=== PATIENT | female | born 1965 | race Caucasian/White ===

== ENCOUNTER 2017-02-04 01:30 | Emergency (ER) | payer OTHER ==
--- NOTE | 2017-02-10 08:00 | ED DISCHARGE INSTRUCTIONS ---
Patient: LETY QUICK General Instructions [facility] VisitID: [id number] [address] [place] [address] 51y, F Registration Date/Time: 02/04/2017 Formication. (Electronically signed by Brian Gillette MD 02/04/2017 6:50)
--- NOTE | 2017-02-10 08:00 | ED MAR SUMMARY ---
..... Medication Administration Record [facility] [address] [place], [place] [id number] Patient: LETY QUICK Visit ID: [id number] 51y, F Weight: 104.3 kg Height/Length: 67 in BMI: 36 ALLERGIES: Flagyl
--- NOTE | 2017-02-10 08:00 | ED MED RECONCILIATION SUMMARY ---
Patient: LETY QUICK Medication Reconciliation Report [facility] VisitID: [id number] [address] [place] [address] 51y, F Registration Date/Time: 02/04/2017 Weight: 104.3 kg Height/Length: 67 in. BMI: 36.0 ALLERGIES: Flagyl The patient's Home Medications are listed below: NONE. The source(s) of the original Home Medication information: Not obtained. The following Medications were given to the patient in the Emergency Department: None. The following Medications were prescribed to the patient: None.
--- NOTE | 2017-02-10 08:00 | ED ORDER SUMMARY ---
..... Patient: LETY QUICK OrderSheet [facility] VisitID: [id number] [place] [address] 51y, F Registration Date/Time: 02/04/2017 ORDER SHEET Weight: 104.3 kg (stated) Allergies: Flagyl GENERAL ORDERS: Urine Drug Screen Urgent (02:05 02/04/2017 Yariel PAULINO) (2:22 DDavis R.N.) Urine Urgent (02:05 02/04/2017 Yariel PAULINO) (2:22 DDtrinh R.N.) MEDICATION ORDERS: IV FLUIDS: ORDER SHEET NOTES: [Electronically signed by Brian Gillette MD (06:50 02/04/2017)] [Electronically signed by Nikky Taylor R.N. (07:59 02/10/2017)] [Electronically locked/signed by Nikky Taylor R.N. (07:59 02/10/2017)]
--- NOTE | 2017-02-10 08:00 | ED CLINICAL REPORT ---
Clinical Report - Physicians/Mid Levels [facility] [address] [place] [address] 02/04/2017 1:32 Patient: LETY QUICK Time Seen: 01:43. Arrived- By ambulance. Historian- patient and EMS personnel. History limited by agitation. Physical Exam limited by poor cooperation. HISTORY OF PRESENT ILLNESS Chief Complaint: ("pollywogs in my skin"). This started about 2 months ago and is still present. It was gradual in onset and has been intermittent and waxing/waning. It has been generalized in location. No cause has been identified. Similar symptoms previously: Recent medical care: The patient was seen recently at another facility in the office. ( her mother describes a treatment consistent with scabies therapy). REVIEW OF SYSTEMS No chills, fever, sweats, calf pain or chest pain. No cough, difficulty breathing, pedal edema, palpitations or abdominal pain. No constipation, diarrhea, nausea, vomiting or urinary problems. PAST HISTORY Problems: Psycotic Episodes. Fibromyalgia. Additional Surgeries: Cholecystectomy. . Hysterectomy. Tonsillectomy. Tubal Ligation. Medications: None. Allergies: Flagyl. SOCIAL HISTORY Current every day heavy tobacco smoker (cigarette)- 1-2 packs per day. History of heavy drug use: marijuana. No alcohol use. Residence: [place] she lives with parent(s). FAMILY HISTORY her mother presents with similar complaints. ADDITIONAL NOTES The nursing notes have been reviewed. PHYSICAL EXAM Vital Signs: 02/04/2017 01:35 BP: 162/62. HR: 82. RR: 20. O2 saturation: 98%. Temp: 98.2 F. Pain level now: 3/10. Have been reviewed. Appearance: Alert. She appears agitated and appears unkempt and older than stated age but is uncooperative. Eyes: Pupils equal, round and reactive to light. ENT: Pharynx normal. Neck: Neck supple. CVS: Normal heart rate and rhythm. Heart sounds normal. Respiratory: No respiratory distress. Breath sounds normal. Abdomen: Nontender. No organomegaly. Skin: Skin warm and dry. No rash. Extremities: Normal external inspection. Extremities nontender. Neuro: No motor deficit. No sensory deficit. PROGRESS AND PROCEDURES Course of Care: while awaiting the results the patient's urine studies, the patient became agitated and was yelling in the emergency room. She gathered up her belongings and departed. Patient is stable. Patient/family counseled. Old medical records reviewed. CLINICAL IMPRESSION Formication. (Electronically signed by Brian Gillette MD 02/04/2017 6:50) Addenda for LETY QUICK VisitID: [id number] Date: 02/04/2017 02/05/2017 9:17 Urine: (KINGA: 02/04/2017 01:45) ( MsgRcvd 02/04/2017 02:13) Final results Test Result Flag (Reference) URINE NEGATIVE Urine Drug Screen: (KINGA: 02/04/2017 01:45) ( MsgRcvd 02/04/2017 02:23) Final results Test Result Flag (Reference) AMPHETAMINE/METHAMPHETAMINE NEGATIVE (NEGATIVE) BARBITURATE NEGATIVE (NEGATIVE) BENZODIAZEPINE NEGATIVE (NEGATIVE) CANNABINOID NEGATIVE (NEGATIVE) COCAINE NEGATIVE (NEGATIVE) ECSTASY NEGATIVE (NEGATIVE) METHADONE NEGATIVE (NEGATIVE) OPIATE NEGATIVE (NEGATIVE) The urine drug screen is a qualitative screening test for drug overdose and abuse. All screen results should be considered as presumptive. Drugs screened for are as follows: Benzodiazepines Cocaine Amphetamines/Metamphetamines THC (Tetrahydrocannabinol) Opiates Barbiturates Ecstasy Methadone Positive results are unconfirmed. For confirmation, notify the lab for the specimen to be sent to the reference lab. All confirmations must be performed by a different methodology. The ingestion of natural herbal and plant products containing Ephedra/Ephedra metabolites can produce in urine one or more substances capable of cross reacting with amphetamine/methamphetamine immunoassays. These tests provide a preliminary result only. A more specific alternative chemical method must be used to obtain a (Electronically signed by Brian Gillette MD - 02/05/2017 9:17)
--- NOTE | 2017-02-10 08:00 | ED NURSING NOTES ---
Clinical Report - Nurses [facility] [address] [place] [address] 02/04/2017 1:32 Patient: LETY QUICK TRIAGE Triage time 01:41. Acuity: LEVEL 3. Chief Complaint: (pt states having "polywogs" and "white curls" crawling out of her skin.). DEBRA COMA SCORE: Debra Coma Scale: 15- eyes open spontaneously (4); best verbal response- oriented x 4 (5); best motor response- obeys commands (6). --01:45 Rogelio Barraza R.N. 01:35 02/04/17. BP: 162/62. HR: 82. RR: 20. O2 saturation: 98%. Temp: 98.2 F. Pain level now: 01/22. --01:45 Rogelio Barraza R.N. Weight: 104.3 kg stated. Height/Length: 67 inches Per Patient. BMI: 36. --01:45 Rogelio Barraza R.N. Medications None. --01:40 Rogelio Barraza R.N. The following entry was struck by Rogelio Barraza R.N., 01:40 (02/04/17) Reason - other(patient changes info). <<STRICKEN ENTRY-- Unknown. --01:37 Rogelio Barraza R.N. --END STRIKE>>. Allergies Flagyl. --01:40 Rogelio Barraza R.N. History Arrived by EMS. Historian: patient. Accompanied by family. Onset. (2 months ago). ( pt states that she has been taking "lavender" for the condition, and that it "zaragoza them off"). ( no rash or skin abnormalities observed). No skin rash. 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 SOCIAL HX: Current every day heavy tobacco smoker- 1-2 packs per day. History of occasional drug use: marijuana. SELF HARM ASSESSMENT: A self harm assessment was performed. The patient answered "no" to the question "Have you recently felt down, depressed, or hopeless?", "Have you noticed less interest or pleasure in doing things?", "Do you have thoughts of harming or killing yourself?", "Are you here because you tried to hurt yourself?", "Have you ever tried to hurt yourself before today?" and "Have you recently had thoughts about harming or killing others?". FALL RISK ASSESSMENT: Fall risk assessment completed. No fall risk identified. NUTRITIONAL RISK ASSESSMENT: The nutritional risk assessment revealed no deficiencies. FUNCTIONAL ASSESSMENT: Functional assessment: no impairments noted. LEARNING NEEDS ASSESSMENT: The learning needs assessment revealed no barriers. --01:45 Rogelio Barraza R.N. PROBLEMS: Psycotic Episodes. Fibromyalgia. --01:40 Rogelio Barraza R.N. ADDITIONAL SURGERIES: Cholecystectomy. . Hysterectomy. Tonsillectomy. Tubal Ligation. --01:41 Rogelio Barraza R.N. Interventions ID and allergy band on patient. To treatment room. --01:45 Rogelio Barraza R.N. PHYSICAL ASSESSMENT ( no skin abnormalities observed.). GENERAL / NEURO / PSYCH: Alert. Oriented X 4. HEENT: Mucous membranes are pink. RESPIRATORY: Respirations not labored. CVS: Capillary refill less than 2 seconds. GI / : Abdomen soft and nontender. SKIN: Skin is warm and dry. Normal skin turgor. --01:46 Rogelio Barraza R.N. NURSING PROGRESS NOTES Patient gowned. Head of bed elevated. Reassurance given. Two patient identifiers checked. Call light placed in reach. Side rails up x 1. Bed placed in lowest position. Brakes of bed on. Patient ready for evaluation- chart flagged. Patient waiting for evaluation. --01:46 Rogelio Barraza R.N. ( patient states that she has not taken any drugs "in over a month."). --01:46 Rogelio Barraza R.N. ( patient escalating, yelling "this is shit" "you guys are fucking". patient agitated and pacing hallway. Security called. Patient asked to not yell.). --02:09 Rogelio Barraza R.N. ( Patient exited ER to waiting room.). --02:10 Rogelio Barraza R.N. ( At 0210 - Dr. Gillette (and nurse Bradley, RN) present and observed the patient's behavior as she left the ER.). --03:40 Rogelio Barraza R.N. DISPOSITION / DISCHARGE Departure time: 02:11. Condition at departure: unchanged. The patient left prior to discharge education being provided. ( Patient left agitated from ER after speaking with the doctor. The patient refused to receive discharge paperwork and left.). --02:12 Rogelio Barraza R.N. Locked/Released at 02/10/2017 7:59 by Nikky Taylor R.N.
--- NOTE | 2017-02-10 08:00 | ED MAR SUMMARY ---
..... Medication Administration Record [facility] [address] [place], [place] [id number] Patient: LETY QUICK Visit ID: [id number] 51y, F Weight: 104.3 kg Height/Length: 67 in BMI: 36 ALLERGIES: Flagyl
--- NOTE | 2017-02-10 08:00 | ED ORDER SUMMARY ---
..... Patient: LETY QUICK OrderSheet [facility] VisitID: [id number] [place] [address] 51y, F Registration Date/Time: 02/04/2017 ORDER SHEET Weight: 104.3 kg (stated) Allergies: Flagyl GENERAL ORDERS: Urine Drug Screen Urgent (02:05 02/04/2017 Yariel PAULINO) (2:22 DDavis R.N.) Urine Urgent (02:05 02/04/2017 Yariel PAULINO) (2:22 DDtrinh R.N.) MEDICATION ORDERS: IV FLUIDS: ORDER SHEET NOTES: [Electronically signed by Brian Gillette MD (06:50 02/04/2017)] [Electronically signed by Nikky Taylor R.N. (07:59 02/10/2017)] [Electronically locked/signed by Nikky Taylor R.N. (07:59 02/10/2017)]
--- NOTE | 2017-02-10 08:00 | ED MED RECONCILIATION SUMMARY ---
Patient: LETY QUICK Medication Reconciliation Report [facility] VisitID: [id number] [address] [place] [address] 51y, F Registration Date/Time: 02/04/2017 Weight: 104.3 kg Height/Length: 67 in. BMI: 36.0 ALLERGIES: Flagyl The patient's Home Medications are listed below: NONE. The source(s) of the original Home Medication information: Not obtained. The following Medications were given to the patient in the Emergency Department: None. The following Medications were prescribed to the patient: None.
--- NOTE | 2017-02-10 08:00 | ED CLINICAL REPORT ---
Clinical Report - Physicians/Mid Levels [facility] [address] [place] [address] 02/04/2017 1:32 Patient: LETY QUICK Time Seen: 01:43. Arrived- By ambulance. Historian- patient and EMS personnel. History limited by agitation. Physical Exam limited by poor cooperation. HISTORY OF PRESENT ILLNESS Chief Complaint: ("pollywogs in my skin"). This started about 2 months ago and is still present. It was gradual in onset and has been intermittent and waxing/waning. It has been generalized in location. No cause has been identified. Similar symptoms previously: Recent medical care: The patient was seen recently at another facility in the office. ( her mother describes a treatment consistent with scabies therapy). REVIEW OF SYSTEMS No chills, fever, sweats, calf pain or chest pain. No cough, difficulty breathing, pedal edema, palpitations or abdominal pain. No constipation, diarrhea, nausea, vomiting or urinary problems. PAST HISTORY Problems: Psycotic Episodes. Fibromyalgia. Additional Surgeries: Cholecystectomy. . Hysterectomy. Tonsillectomy. Tubal Ligation. Medications: None. Allergies: Flagyl. SOCIAL HISTORY Current every day heavy tobacco smoker (cigarette)- 1-2 packs per day. History of heavy drug use: marijuana. No alcohol use. Residence: [place] she lives with parent(s). FAMILY HISTORY her mother presents with similar complaints. ADDITIONAL NOTES The nursing notes have been reviewed. PHYSICAL EXAM Vital Signs: 02/04/2017 01:35 BP: 162/62. HR: 82. RR: 20. O2 saturation: 98%. Temp: 98.2 F. Pain level now: 3/10. Have been reviewed. Appearance: Alert. She appears agitated and appears unkempt and older than stated age but is uncooperative. Eyes: Pupils equal, round and reactive to light. ENT: Pharynx normal. Neck: Neck supple. CVS: Normal heart rate and rhythm. Heart sounds normal. Respiratory: No respiratory distress. Breath sounds normal. Abdomen: Nontender. No organomegaly. Skin: Skin warm and dry. No rash. Extremities: Normal external inspection. Extremities nontender. Neuro: No motor deficit. No sensory deficit. PROGRESS AND PROCEDURES Course of Care: while awaiting the results the patient's urine studies, the patient became agitated and was yelling in the emergency room. She gathered up her belongings and departed. Patient is stable. Patient/family counseled. Old medical records reviewed. CLINICAL IMPRESSION Formication. (Electronically signed by Brian Gillette MD 02/04/2017 6:50) Addenda for LETY QUICK VisitID: [id number] Date: 02/04/2017 02/05/2017 9:17 Urine: (KINGA: 02/04/2017 01:45) ( MsgRcvd 02/04/2017 02:13) Final results Test Result Flag (Reference) URINE NEGATIVE Urine Drug Screen: (KINGA: 02/04/2017 01:45) ( MsgRcvd 02/04/2017 02:23) Final results Test Result Flag (Reference) AMPHETAMINE/METHAMPHETAMINE NEGATIVE (NEGATIVE) BARBITURATE NEGATIVE (NEGATIVE) BENZODIAZEPINE NEGATIVE (NEGATIVE) CANNABINOID NEGATIVE (NEGATIVE) COCAINE NEGATIVE (NEGATIVE) ECSTASY NEGATIVE (NEGATIVE) METHADONE NEGATIVE (NEGATIVE) OPIATE NEGATIVE (NEGATIVE) The urine drug screen is a qualitative screening test for drug overdose and abuse. All screen results should be considered as presumptive. Drugs screened for are as follows: Benzodiazepines Cocaine Amphetamines/Metamphetamines THC (Tetrahydrocannabinol) Opiates Barbiturates Ecstasy Methadone Positive results are unconfirmed. For confirmation, notify the lab for the specimen to be sent to the reference lab. All confirmations must be performed by a different methodology. The ingestion of natural herbal and plant products containing Ephedra/Ephedra metabolites can produce in urine one or more substances capable of cross reacting with amphetamine/methamphetamine immunoassays. These tests provide a preliminary result only. A more specific alternative chemical method must be used to obtain a (Electronically signed by Brian Gillette MD - 02/05/2017 9:17)
--- NOTE | 2017-02-10 08:00 | ED NURSING NOTES ---
Clinical Report - Nurses [facility] [address] [place] [address] 02/04/2017 1:32 Patient: LETY QUICK TRIAGE Triage time 01:41. Acuity: LEVEL 3. Chief Complaint: (pt states having "polywogs" and "white curls" crawling out of her skin.). DEBRA COMA SCORE: Debra Coma Scale: 15- eyes open spontaneously (4); best verbal response- oriented x 4 (5); best motor response- obeys commands (6). --01:45 Rogelio Barraza R.N. 01:35 02/04/17. BP: 162/62. HR: 82. RR: 20. O2 saturation: 98%. Temp: 98.2 F. Pain level now: 01/22. --01:45 Rogelio Barraza R.N. Weight: 104.3 kg stated. Height/Length: 67 inches Per Patient. BMI: 36. --01:45 Rogelio Barraza R.N. Medications None. --01:40 Rogelio Barraza R.N. The following entry was struck by Rogelio Barraza R.N., 01:40 (02/04/17) Reason - other(patient changes info). <<STRICKEN ENTRY-- Unknown. --01:37 Rogelio Barraza R.N. --END STRIKE>>. Allergies Flagyl. --01:40 Rogelio Barraza R.N. History Arrived by EMS. Historian: patient. Accompanied by family. Onset. (2 months ago). ( pt states that she has been taking "lavender" for the condition, and that it "zaragoza them off"). ( no rash or skin abnormalities observed). No skin rash. 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 SOCIAL HX: Current every day heavy tobacco smoker- 1-2 packs per day. History of occasional drug use: marijuana. SELF HARM ASSESSMENT: A self harm assessment was performed. The patient answered "no" to the question "Have you recently felt down, depressed, or hopeless?", "Have you noticed less interest or pleasure in doing things?", "Do you have thoughts of harming or killing yourself?", "Are you here because you tried to hurt yourself?", "Have you ever tried to hurt yourself before today?" and "Have you recently had thoughts about harming or killing others?". FALL RISK ASSESSMENT: Fall risk assessment completed. No fall risk identified. NUTRITIONAL RISK ASSESSMENT: The nutritional risk assessment revealed no deficiencies. FUNCTIONAL ASSESSMENT: Functional assessment: no impairments noted. LEARNING NEEDS ASSESSMENT: The learning needs assessment revealed no barriers. --01:45 Rogelio Barraza R.N. PROBLEMS: Psycotic Episodes. Fibromyalgia. --01:40 Rogelio Barraza R.N. ADDITIONAL SURGERIES: Cholecystectomy. . Hysterectomy. Tonsillectomy. Tubal Ligation. --01:41 Rogelio Barraza R.N. Interventions ID and allergy band on patient. To treatment room. --01:45 Rogelio Barraza R.N. PHYSICAL ASSESSMENT ( no skin abnormalities observed.). GENERAL / NEURO / PSYCH: Alert. Oriented X 4. HEENT: Mucous membranes are pink. RESPIRATORY: Respirations not labored. CVS: Capillary refill less than 2 seconds. GI / : Abdomen soft and nontender. SKIN: Skin is warm and dry. Normal skin turgor. --01:46 Rogleio Barraza R.N. NURSING PROGRESS NOTES Patient gowned. Head of bed elevated. Reassurance given. Two patient identifiers checked. Call light placed in reach. Side rails up x 1. Bed placed in lowest position. Brakes of bed on. Patient ready for evaluation- chart flagged. Patient waiting for evaluation. --01:46 Rogelio Barraza R.N. ( patient states that she has not taken any drugs "in over a month."). --01:46 Rogelio Barraza R.N. ( patient escalating, yelling "this is shit" "you guys are fucking". patient agitated and pacing hallway. Security called. Patient asked to not yell.). --02:09 Rogelio Barraza R.N. ( Patient exited ER to waiting room.). --02:10 Rogelio Barraza R.N. ( At 0210 - Dr. Gillette (and nurse Bradley, RN) present and observed the patient's behavior as she left the ER.). --03:40 Rogelio Barraza R.N. DISPOSITION / DISCHARGE Departure time: 02:11. Condition at departure: unchanged. The patient left prior to discharge education being provided. ( Patient left agitated from ER after speaking with the doctor. The patient refused to receive discharge paperwork and left.). --02:12 Rogelio Barraza R.N. Locked/Released at 02/10/2017 7:59 by Nikky Taylor R.N.
--- NOTE | 2017-02-10 08:00 | ED DISCHARGE INSTRUCTIONS ---
Patient: LETY QUICK General Instructions [facility] VisitID: [id number] [address] [place] [address] 51y, F Registration Date/Time: 02/04/2017 Formication. (Electronically signed by Brian Gillette MD 02/04/2017 6:50)
== END 2017-02-04 02:12 | disposition left against medical advice (07) ==
LOC: ED SRH 01:30
DX: R20.2 Paresthesia of skin (principal); F17.210 Nicotine dependence, cigarettes, uncomplicated; F12.10 Cannabis abuse, uncomplicated
CPT/HCPCS: 92760; 92761; 92762; 92763; 92764; 92765; 92766; 92767; 93070